=== PATIENT | female | born 1995 | race Hispanic/Latino ===

== ENCOUNTER 2018-08-23 19:25 | Inpatient (IN) | payer OTHER ==
[~2018-08-23] VITALS: Ht 152.4 cm; Wt 67.0 kg
--- NOTE | ~2018-08-23 | OR ---
[facility] [address] [place], [place] [address] Draft DATE OF OPERATION: 08/23/2018 SURGEON: Angelina Bishop DO PREOPERATIVE DIAGNOSES: 1. Intrauterine at 38 and 5. 2. History of prior section. 3. Active labor. 4. Rh negative, status post RhoGAM. POSTOPERATIVE DIAGNOSES: 1. Intrauterine at 38 and 5. 2. History of prior section. 3. Active labor. 4. Rh negative, status post RhoGAM. 5. Pelvic adhesive disease. PROCEDURE PERFORMED: Repeat low transverse delivery. ANESTHESIA: Spinal. DATA ENTRY: Reymundo Vee MD. ESTIMATED BLOOD LOSS: 500 mL. SPECIMEN: None. COMPLICATIONS: None. FINDINGS: Viable male born in the LOP position via low transverse delivery, weighing 7 pounds 3 ounces with Apgars of 9 and 9 at one and five minutes respectively. There is some scarring of the bladder to the mid uterus with wispy adhesions that were easily brought down and a very thin lower uterine segment noted. PATIENT NAME: SUYAPA WADE OPERATIVE REPORT DATE OF : 89 REPORT #: [id number] PHYSICIAN: ANGELINA BISHOP DO PCP: NICK CORDERO MD REPORT IS CONFIDENTIAL AND NOT TO BE RELEASED WITHOUT AUTHORIZATION [facility] [address] [place] [id number] Draft INDICATIONS: Ms. Wade is a pleasant 23-year-old G2, P1-0-0-1, with intrauterine at 38 and 5 weeks gestation, who presented for labor check. She complained of contractions increasing in frequency and intensity. The cervix was noted to change and decision was made to proceed with repeat low transverse delivery. Risks, benefits, and alternatives were discussed again in detail. All questions were answered to the best of my ability and the patient's apparent satisfaction. TECHNIQUE: The patient was taken to the operating room, where a time-out was performed to confirm correct patient and correct procedure. Spinal anesthesia was adequately established. The patient was prepped and draped in the supine position with a bump on the right hip. Sood catheter was inserted and ICPs were on and running. No preop heparin was indicated, however the patient did receive 2 g of Ancef preoperatively per [facility] protocol. Once spinal anesthetic was noted to be adequate, a Pfannenstiel incision was made by incising through the prior scar. The fascia was nicked in the midline and fascial incision was extended bilaterally using Moses scissors. Fascial edge was grasped with Kathleen's, elevated, and the underlying rectus muscle dissected off bluntly and sharply. The rectus muscles were bluntly divided in the midline. The peritoneum was grasped with hemostats, elevated, and entered sharply. Peritoneal incision was extended bilaterally using blunt dissection. The bladder was noted to be scarred up to the mid uterus, however these adhesions were thin and wispy. They were brought down using Metzenbaum scissors. The bladder flap was created and the bladder pushed well down. No other pelvic adhesions were noted. The lower uterine segment was noted to be quite thin and hysterotomy was made using a surgical scalpel. The hysterotomy was extended bilaterally using blunt dissection and the amniotic sac ruptured and fluid noted to be clear. The vertex was delivered in the LOP position after the surgeon placed his hand into the uterine cavity and elevated the vertex into the abdomen and delivered with the assistance of fundal pressure. No nuchal cord was noted. The remainder of the delivered without difficulty. Upon delivery, the was vigorous and cried and the cord was doubly clamped and cut and the handed to the awaiting pediatric team for further care. A section of cord was obtained for routine analysis and then the placenta was manually expressed intact with a centrally inserted three-vessel cord. Uterine cavity was cleared of any remaining products of conception or clot and hysterotomy was repaired using 0 Vicryl in a running nonlocked stitch. A 2nd imbricating stitch of 0 Vicryl was applied in a vertical manner with good imbrication and hemostasis. The pelvis was irrigated and a small amount of oozing was noted in the midline. This was made hemostatic using a [id number] of 0 Vicryl. The tubes and ovaries were examined and found to be normal bilaterally. The Govind retractor was removed and the lower uterine segment again examined and found to be hemostatic. ACell sheet was applied to the lower uterine segment and the peritoneum was PATIENT NAME: SUYAPA WADE OPERATIVE REPORT DATE OF : [birth year] REPORT #: [id number] PHYSICIAN: ANGELINA BISHOP DO PCP: NICK CORDERO MD REPORT IS CONFIDENTIAL AND NOT TO BE RELEASED WITHOUT AUTHORIZATION [facility] [address] [place], [place] [address] Draft then reapproximated using 2-0 Vicryl in a running nonlocked manner. Rectus was reapproximated using 0 Vicryl in three interrupted sutures of 0 Vicryl. The rectus muscle was then examined and found to be hemostatic and ACell powder was applied to the rectus sheath. The fascia was then reapproximated using 0 Vicryl in a running nonlocked manner. Subcuticular tissue was reapproximated using 2-0 Vicryl in a running nonlocked manner and the skin was reapproximated using surgical jason after ensuring that the subcu was hemostatic and then had been irrigated. The uterus was crede'd for a small amount of blood. The patient was then taken to PACU in good and stable condition. Sponge, needle, and instrument count was correct x2 at the end of the procedure. Dr. Vee was present and participated in all portions of the procedure. Angelina Bishop DO JDW/MODL /[id number] Copies: ~ PATIENT NAME: SUYAPA WADE OPERATIVE REPORT DATE OF : [birth year] REPORT #: [id number] PHYSICIAN: ANGELINA BISHOP DO PCP: NICK CORDERO MD REPORT IS CONFIDENTIAL AND NOT TO BE RELEASED WITHOUT AUTHORIZATION
--- OUTSIDE RECORDS SUMMARY | ~2018-08-23 | XMS | Clinical Summary ---
Demographics + + + | Address | [address] | | | [place] [address] | + + + | Home Phone | | + + + | Preferred Language | Unknown | + + + | Marital Status | Single | + + + | Mosque Affiliation | Unknown | + + + | Race | Unknown | + + + | Ethnic Group | Unknown | + + + Author + + + | Author | [facility] | | | and [place] | + + + | Organization | [facility] | | | and [place] | + + + | Address | Unknown | + + + | Phone | Unavailable | + + + Support + + + + + | Name | Relationship | Address | Phone | + + + + + | Edgardo Briones | ECON | [address] | | | | | [place], [place] | | | | | [address] | | + + + + + | Edgardo Briones | ECON | [address] | | | | | [place], [place] | | | | | [address] | | + + + + + Care Team Providers + +------+ + | Care Embroidery Operator Name | Role | Phone | + +------+ + PP | Unavailable | + +------+ + Allergies Not on File Medications Not on file Active Problems Not on file Social History + +-------+ +--------+------+ | Tobacco Use | Types | Packs/Day | Years | Date | | | | | Used | | + +-------+ +--------+------+ | Never Assessed | | | | | + +-------+ +--------+------+ + + + | Sex Assigned at | Date Recorded | | | | + + + | Not on file | | + + + + + + + | Job Start Date | Occupation | Industry | + + + + | Not on file | Not on file | Not on file | + + + + + + + + | Travel History | Travel Start | Travel End | + + + + + + | No recent travel history available. | + + Plan of Treatment + + + + + | Health Maintenance | Due Date | Last Done | Comments | + + + + + | Vaccine: HPV (1 - | | | | | Female 3-dose | 1 | | | | series) | | | | + + + + + | Vaccine: | | | | | Dtap/Tdap/Td (1 - | 5 | | | | Tdap) | | | | + + + + + | Cervical Cancer | | | | | Screening (Pap) | 7 | | | + + + + + | Vaccine: Influenza | | | | | (Season Ended) | 9 | | | + + + + + Results Not on filefrom Last 3 Months"
[~2018-08-23 19:25] MED LIST: NIGHTTIME SLEEP25 M1 PO; NORCO 7.5-3251 EACH PO; PYRIDOXINE HCL25 MG PO; ULTRAM50 MG PO; ZOFRAN4 MG PO
--- NOTE | 2018-08-23 22:01 | NUR ---
08/23/182200 Suni Turner 2145: PT ARRIVES TO [facility] ROOM 103 AWAKE, WITH NO COMPLAINTS OF PAIN. SHE STATES THAT SHE IS SLIGHTLY NAUSEOUS, BUT NOTHING TOO BAD. SHE FEELS LIKE HER TOES ARE TINGLY, SHE IS EDUCATED ON HOW HER SPINAL COULD RESOLVE. PT'S MOM AND SIGNIFCANT OTHER ARE AT THE BEDSIDE WITH BABY.
--- NOTE | 2018-08-24 08:31 | PR ---
[facility] [address] [place], [place] [address] Signed PP Progress Notes Datetime Report Generated by CPHortensia: 08/24/2018 08:31 SUBJECTIVE: [id number] Pain: Within normal limits Nausea/Vomiting: Denies Flatus: No Bowel Movement: No Vital Signs: [id number] Vital Signs: Reviewed Notable Details: Mild tachy cardia, _300cc urine out in 10 hrs EXAM: [id number] Cardiovascular: Normal Respiratory: Normal Abdomen/Uterus: Normal Lochia: Normal Vulva/Perineum: Not Done CVA Tenderness: Normal Extremities: Normal Incision: Normal Progress: Normal Exam Comments: Fundus firm, U-2 nontender. Incision well healing. IMPRESSION/PLAN/PROCEDURES: [id number] Impression: Normal progression Plan: Continue present management Other Plans: Bolus 500cc LR now Progress Notes: Pt seen and examined. Doing well. Ambulating, voiding, and tolerating full diet. Pain and lochia minimal. No lightheadedness/dizziness. No fevers/chills. Urine output has been borderline and last dose toradol held. well. Bleeding has been scant. Hgb 10.4 this AM. Exam benign. Will bolus LR 500cc LR now. Signing Physician: Angelina Bishop DO Copies: ~ *Electronically Signed* 08/24/18 0857 ANGELINA BISHOP DO PATIENT NAME: SUYAPA FIGUEROA PROGRESS NOTE DATE OF : [birth year] PHYSICIAN: ANGELINA BISHOP DO RPT #: [id number] REPORT IS CONFIDENTIAL AND NOT TO BE RELEASED WITHOUT AUTHORIZATION
--- NOTE | 2018-08-25 09:35 | PR ---
[facility] [address] [place], [place] [address] Signed PP Progress Notes Datetime Report Generated by MIRNA: 08/25/2018 09:35 SUBJECTIVE: [id number] Pain: Within normal limits Nausea/Vomiting: Denies Flatus: Yes Bowel Movement: Yes Vital Signs: [id number] Vital Signs: Reviewed Notable Details: Mild tachy cardia, _300cc urine out in 10 hrs EXAM: [id number] Cardiovascular: Normal Respiratory: Normal Abdomen/Uterus: Normal Lochia: Normal Vulva/Perineum: Not Done Breasts: Not Done CVA Tenderness: Normal Extremities: Normal Incision: Normal Progress: Normal Exam Comments: Fundus firm U-2 nontender. Incision healing nicely IMPRESSION/PLAN/PROCEDURES: [id number] Impression: Normal progression Plan: Remove jason; Discharge Other Plans: Bolus 500cc LR now Progress Notes: Pt seen and examined. Doing well. Ambulating, voiding, and tolerating full diet. Pain and lochia minimal. well. Denies lightheadedness, dizziness, fevers, or other concerns. Desires d/c home today. Planning Paragard for contraception Signing Physician: Angelina Bishop DO Copies: ~ *Electronically Signed* 08/25/18 0935 ANGELINA BISHOP DO PATIENT NAME: SUYAPA FIGUEROA PROGRESS NOTE DATE OF : [birth year] PHYSICIAN: ANGELINA BISHOP #: [id number] REPORT IS CONFIDENTIAL AND NOT TO BE RELEASED WITHOUT AUTHORIZATION
== END 2018-08-25 15:18 | disposition home or self-care (01) | DRG 788 ==
LOC: FBCO 19:25 → FBC 20:02
PROVIDERS: ADMIT Obstetrics & Gynecology
PROC: 10D00Z1 Extraction of Products of Conception, Low, Open Approach (ICD-10-PCS; principal; 2018-08-23 20:36)
DX: O34.211 Maternal care for low transverse scar from previous cesarean delivery (principal); N85.8 Other specified noninflammatory disorders of uterus; Z3A.38 38 weeks gestation of pregnancy; Z37.0 Single live birth; O99.344 Other mental disorders complicating childbirth; F41.9 Anxiety disorder, unspecified
CPT/HCPCS: 01961; 36415; 85027; J0690; J1100; J1170; J1885; J2274; J2370; J2405; J2550; J2590; J2704; J3010; J7120